=== PATIENT | female | born 1960 | race Caucasian/White ===

== ENCOUNTER 2017-03-03 15:06 | Emergency (ER) | payer OTHER ==
[~2017-03-03] VITALS: Ht 160 cm; Wt 104.6 kg
[2017-03-03] MEDS ORDERED: SODIUM CHLORIDE 0.9% 1000ML 1,000 ML IV STA (15:19)
[2017-03-03 15:20] VITALS: TEMP 36.8; Ht 160 cm; Wt 104.6 kg
[2017-03-03] MEDS ORDERED: ONDANSETRON INJ 2 MG/ML 2 ML VIAL IV STA (15:22)
[2017-03-03] MEDS ORDERED: KETOROLAC TROMETHAMINE 30 MG/ML VIAL IV STA (15:22)
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
[2017-03-03 15:25] VITALS: O2SAT 96
[2017-03-03] MEDS ORDERED: OPTIRAY 320 IV PRN (15:30)
[2017-03-03 15:42] LABS: BASO % 0.5 %; BASO ABS # 0.05 K/uL (0-0.2); COMPLETE YES; EOS % 4.4 %; HEMATOCRIT 42.1 % (37-47); IG% 0.5 %; LYMPH % 27.2 %; LYMPH ABS # 2.89 K/uL (1.2-3.4); MEAN CORPUSCULAR HEMOGLOBIN 25.8 pg (25-34); MEAN CORPUSCULAR HGB CONC 31.8 g/dl (32-36); MEAN PLATELET VOLUME 10.4 fL (7.4-10.4); MONO % 7.7 %; NEUT % 59.7 %; PLATELET COUNT 374 K/uL (130-400); WHITE BLOOD COUNT 10.63 K/uL (4.8-10.8)
[2017-03-03] MEDS ORDERED: BUPR-79 PO (16:01)
[2017-03-03] MEDS ORDERED: GLIP2.5T11 PO (16:01)
[2017-03-03] MEDS ORDERED: GLIM2TAB2 PO (16:01)
[2017-03-03] MEDS ORDERED: ZOLP5TAB PO (16:01)
[2017-03-03] MEDS ORDERED: CITA20TA9 PO (16:01)
[2017-03-03] MEDS ORDERED: METF-384 PO (16:01)
[2017-03-03] MEDS ORDERED: CETI10TA10 PO (16:01)
[2017-03-03] MEDS ORDERED: BUSP15TA70 PO (16:01)
[2017-03-03] MEDS ORDERED: ALBUAER INH (16:01)
[2017-03-03] MEDS ORDERED: PRT/20 PO (16:01)
[2017-03-03 16:03] LABS: ALT/SGPT 26 U/L (12-78); AST/SGOT 21 U/L (15-37); BLOOD UREA NITROGEN 16 mg/dl (7-18); BUN/CREATININE RATIO 17.7 (10-20); CALCIUM 8.5 mg/dl (8.5-10.1); CARBON DIOXIDE 26 mmol/L (21-32); CHLORIDE 108 mmol/L (98-107); CREATININE 0.88 mg/dl (0.60-1.20); GLUCOSE 106 mg/dl (70-99); POTASSIUM 3.7 mmol/L (3.5-5.1); SODIUM 143 mmol/L (136-145)
[2017-03-03 16:07] LABS: ALKALINE PHOSPHATASE 102 U/L (45-117); CKMB/CK RATIO 1.2 (0-3.0)
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
[2017-03-03 17:38] VITALS: BP 171/96; PULSE 84; O2SAT 99
[2017-03-03 19:07] LABS: ISTAT CREATININE 0.8 mg/dl (0.6-1.3); ISTAT HEMOGLOBIN 14.6 g/dl (12.0-16.0); ISTAT IONIZED CALCIUM 1.15 mmol/l (1.12-1.32)
== END 2017-03-03 17:41 | disposition home or self-care (01) ==
LOC: EDBD 15:06 → EDSEX 15:06 → C.EDB 15:08
DX: R07.9 Chest pain, unspecified (principal); V43.52XA Car driver injured in collision with other type car in traffic accident, initial encounter; Z79.84 Long term (current) use of oral hypoglycemic drugs; Z79.899 Other long term (current) drug therapy; Z88.0 Allergy status to penicillin; Z91.09 Other allergy status, other than to drugs and biological substances; Z83.3 Family history of diabetes mellitus; Z82.49 Family history of ischemic heart disease and other diseases of the circulatory system

== ENCOUNTER 2022-01-13 00:12 | Observation (INO) ==
[2022-01-13] MEDS ORDERED: ONDANSETRON INJ 2 MG/ML 2 ML VIAL IV STA (00:42)
[2022-01-13] MEDS ORDERED: SODIUM CHLORIDE 0.9% 500 ML IV SCH (00:45)
--- NOTE | 2022-01-13 00:46 | Emergency Department Note ---
History of Present Illness General Chief complaint: Illness Stated complaint: GENERALIZED ILLNESS/VOMITING/ Time Seen by Provider: 01/13/22 00:32 Source: patient Mode of arrival: EMS History of Present Illness Provider complaint: Flulike symptoms Onset (ago): hour(s) Location: head Pain Consistency: + constant Quality: + aching Relieved By: + none Associated symptoms: + cough, + fever/chills, + headaches, + malaise and + nausea/vomiting; no chest pain or no shortness of breath This a 62-year-old female who presents with flulike symptoms starting today. The patient states that she developed a fever of 102. She had generalized body aches and weakness. She started throwing up multiple times. She does complain of a headache. She has developed congestion and is concerned she may have CO VID-19. She had her son over for the and he called her today to let her know that one of his close contacts tested positive for COVID. The patient's son did not have any symptoms. The patient is vaccinated and received a booster for COVID-19. She has had a tooth infection for 1-1/2 weeks. She states it is much better and has been on clindamycin for this. She is scheduled to have surgery tomorrow by the recovery auditor. It is her left upper molar. She states that her the tooth is not really bothering her. She does have a chronic cough. She denies any chest pain, shortness of breath, abdominal pain, diarrhea or urinary symptoms. Home Medications Medication Instructions Recorded Confirmed Type albuterol sulfate 90 mcg/actuation 2 - 3 puff INHALATION DIRECTED 02/03/21 01/13/22 History aerosol inhaler PRN biotin 1 mg capsule 1 mg PO DAILY 02/03/21 01/13/22 History bupropion HCl 150 mg 24 hr tablet, 150 mg PO QAM 02/03/21 01/13/22 History extended release cetirizine 10 mg tablet 10 mg PO DAILY PRN 02/03/21 01/13/22 History cholecalciferol (vitamin D3) 50 50 mcg PO DAILY 02/03/21 01/13/22 History mcg (2,000 unit) capsule citalopram 10 mg tablet 10 mg PO DAILY tab 02/03/21 01/13/22 History citalopram 20 mg tablet 20 mg PO DAILY 02/03/21 01/13/22 History diphenhydramine HCl 25 mg capsule 25 mg PO Q6H PRN 02/03/21 01/13/22 History (Benadryl) fluticasone 250 mcg-salmeterol 50 1 inh INHALATION BID 02/03/21 01/13/22 History mcg/dose blistr powdr for inhalation hydrocortisone 2.5 % topical 1 applic TOPICAL BID PRN 02/03/21 01/13/22 History ointment losartan 25 mg tablet 25 mg PO DAILY 02/03/21 01/13/22 History multivitamin (Multiple Vitamins) 1 tab PO DAILY 02/03/21 01/13/22 History pantoprazole 20 mg tablet,delayed 20 mg PO DAILY 02/03/21 01/13/22 History release semaglutide 1 mg/dose (2 mg/1.5 1 mg SUBCUT WK 02/03/21 05/03/21 History mL) subcutaneous pen injector (Ozempic) triamcinolone acetonide 0.1 % 1 applic TOPICAL BID PRN 02/03/21 01/13/22 History topical cream hydrocodone 5 mg-acetaminophen 325 1 tab PO Q6H PRN #12 tab 05/03/21 01/13/22 Rx mg tablet fluticasone propionate 50 2 spray INTRANASAL DAILY 01/13/22 01/13/22 History mcg/actuation nasal spray,suspension (Flonase Allergy Relief) hydroxychloroquine 200 mg tablet 200 mg PO HS 01/13/22 01/13/22 History sodium chloride 0.65 % nasal spray 1 spray INTRANASAL BID PRN 01/13/22 01/13/22 History aerosol (Saline Mist) Allergies Allergy/AdvReac Type Severity Reaction Status Date / Time fentanyl Allergy Severe DROPPED Verified 01/13/22 02:29 B/P, O2 SATS, BECAME TACHYCARDIC Penicillins Allergy Intermediate Vomiting Verified 01/13/22 02:29 adhesive Allergy Unknown PAPER TAPE Verified 01/13/22 02:29 fire ant Allergy Unknown Unknown Verified 01/13/22 02:29 rabbit dander Allergy Unknown RABBITS Verified 01/13/22 02:29 mold AdvReac Unknown Unknown Verified 01/13/22 02:29 pollen extracts AdvReac Unknown Unknown Verified 01/13/22 02:29 Past Med/Surg History Medical History Adnexal cyst Arthritis Diabetes Diverticulitis Essential hypertension Extrinsic asthma Hypothyroidism (acquired) IBS (irritable bowel syndrome) Metabolic syndrome Non-alcoholic fatty liver disease Obesity Polycystic ovary syndrome Surgical History H/O section H/O colonoscopy H/O dilation and curettage H/O hemicolectomy H/O oral surgery History of esophagogastroduodenoscopy (EGD) History of partial colectomy sigmoid S/P THANH (total abdominal hysterectomy) Family History Denies family history of Ovarian cancer Clotting disorder Breast cancer Colorectal cancer Uterine cancer Social History Smoking Status: Never smoker Hx Alcohol Use: Yes Hx Substance Use: No Preferred Language: [place] Feels Safe at Home: Yes Review of Systems See HPI for pertinent positives & negatives. and A total of 10 systems reviewed and were otherwise negative Physical Exam Vital Signs Vital Signs - 24 hr 01/13/22 00:19 01/13/22 00:23 01/13/22 02:27 Temperature 37.0 C 37 C Temperature Source Oral Oral Pulse Rate 91 H Pulse Rate [Finger] 91 H 85 Respiratory Rate 18 18 16 Respiratory Effort / Characteristics Non-Labored Spontaneous Non-Labored Spontaneous Non-Labored Spontaneous Respiratory Depth Normal Normal Normal Blood Pressure 184/117 H Blood Pressure [Right Arm] 184/117 H 175/93 H Blood Pressure Mean 139 Blood Pressure Mean [Right Arm] 139 120 Blood Pressure Position Sitting Blood Pressure Position [Right Arm] Sitting Pulse Oximetry 96 96 95 Oxygen Delivery Method Room Air Room Air Room Air Sepsis Recent Fever Within 48 Hours No Sepsis New/Unexplained Change in Mental Status No Sepsis Action Taken by Nursing No Action Required Constitutional: Vital signs reviewed. Eyes: Pupils are equal round reactive to light. Conjunctiva are noninjected. ENT: Pharynx is clear without erythema or exudate. Mucous membranes are moist. No gingival hyperemia. No facial swelling, erythema or tenderness. No cervical lymphadenopathy. Neck supple without meningeal signs. Respiratory: Clear to auscultation bilaterally. Breath sounds are equal bilat erally. Cardiovascular: Regular rate and rhythm. No rubs or gallops. GI: Soft, nondistended and nontender. Bowel sounds are present. Musculoskeletal: No peripheral edema. No lower extremity tenderness. Integumentary: No cyanosis. or jaundice. Neurological: The patient is awake and alert. No focal deficits. Psychiatric: Normal affect. Not anxious appearing. Course Administered Medications Sodium Chloride (Nss) 500 mls @ 125 mls/hr IV .Q4H POONAM Stop: 02/12/22 00:44 Last Admin: 01/13/22 00:59 Dose: 125 mls/hr Documented by: [id number] Discontinued Medications Acetaminophen (Acetaminophen 325 Mg Tab) 650 mg PO NOW STA Stop: 01/13/22 02:06 Last Admin: 01/13/22 02:19 Dose: 650 mg Documented by: [id number] Promethazine HCl (Phenergan) 12.5 mg in 50.5 mls @ 202 mls/hr IV NOW STA Stop: 01/13/22 02:19 Last Admin: 01/13/22 02:19 Dose: 202 mls/hr Documented by: [id number] Ondansetron HCl (Ondansetron Inj 2 Mg/Ml 2 Ml Vial) 4 mg IV NOW STA Stop: 01/13/22 00:43 Last Admin: 01/13/22 00:59 Dose: 4 mg Documented by: [id number] Medical Decision Making Differential Diagnosis COVID-19, influenza, pneumonia, sepsis, bacteremia Medical Records Attestation: I reviewed the patient's medical records. I did perform a limited focused review of portions of the patient's old chart on the electronic medical record. The patient has had no recent pertinent visits to this hospital. Home Medications Current Medication List: was personally reviewed by me Laboratory Data Attestation: I reviewed the patient's lab results. Result diagrams: 01/13/22 00:25 01/13/22 00:25 Lab Results 01/13/22 01/13/22 01/13/22 Range/Units 00:25 00:25 00:25 WBC 10.31 (4.8-10.8) K/uL RBC 4.81 (4.2-5.4) M/uL Hgb 13.8 (12.0-16.0) g/dL Hct 42.3 (37-47) % MCV 87.9 (80-100) fL MCH 28.7 (25-34) pg MCHC 32.6 (32-36) g/dL RDW Std Deviation 45.8 (36.4-46.3) fL RDW Coeff of Davide 14.3 (11.5-14.5) % Plt Count 304 (130-400) K/uL MPV 12.0 H (7.4-10.4) fL Immature Gran % (Auto) 0.2 % Neut % (Auto) 78.1 % Lymph % (Auto) 10.5 % [place] % (Auto) 8.9 % Eos % (Auto) 2.0 % Baso % (Auto) 0.3 % Neut # (Auto) 8.05 H (1.4-6.5) K/uL Lymph # (Auto) 1.08 L (1.2-3.4) K/uL [place] # (Auto) 0.92 H (0.11-0.59) K/uL Eos # (Auto) 0.21 (0-0.5) K/uL Baso # (Auto) 0.03 (0-0.2) K/uL Immature Gran # (Auto) 0.02 (0.00-0.02) K/uL PT 10.2 (9.0-12.0) Seconds INR 1.0 (0.9-1.1) APTT 24.8 (21.0-31.0) Seconds PTT Ratio 0.9 Sodium 135 L (136-145) mmol/L Potassium 4.3 (3.5-5.1) mmol/L Chloride 100 (98-107) mmol/L Carbon Dioxide 26 (21-32) mmol/L Anion Gap 9 (3-11) BUN 15 (6-23) mg/dl Creatinine 0.89 (0.6-1.2) mg/dl Est Cr Clr Drug Dosing 74.9 ml/min Est GFR ( Amer) 79.9 ml/min Est GFR (Non-Af Amer) 69.0 ml/min BUN/Creatinine Ratio 16.9 (10-20) Glucose 209 H (70-99(Fasting)) mg/dl Lactate (0.4-2.0) mmol/L Calcium 9.2 (8.5-10.1) mg/dl Magnesium 1.8 (1.7-2.4) mg/dl Total Bilirubin 0.3 (0.2-1.0) mg/dl AST 18 (13-39) U/L ALT 15 (7-52) U/L Alkaline Phosphatase 113 H (34-104) U/L Total Protein 7.5 (6.0-8.3) gm/dl Albumin 3.7 (3.4-5.0) gm/dl Globulin 3.8 (2.5-4.0) gm/dl Albumin/Globulin Ratio 1.0 (0.9-2) Urine Color Urine Appearance (Clear) Urine pH (4.5-7.5) Ur Specific [place] (1.000-1.030) Urine Protein (Negative) Urine Glucose (UA) (Negative) Urine Ketones (Negative) Urine Blood (Negative) Urine Nitrite (Negative) Urine Bilirubin (Negative) Urine Urobilinogen (Negative) Ur Leukocyte Esterase (Negative) Urine WBC (Auto) (0-5) /hpf Urine RBC (Auto) (0-4) /hpf U Hyaline Cast (Auto) (0-5) /lpf U Epithel Cells (Auto) (0-5) /lpf Urine Bacteria (Auto) (Negative) SARS-CoV-2 (PCR) (Negative) Influenza Type A (PCR) (Neg) Influenza Type B (PCR) (Neg) RSV (RT-PCR) (Neg) 01/13/22 01/13/22 01/13/22 Range/Units 01:03 01:08 02:00 WBC (4.8-10.8) K/uL RBC (4.2-5.4) M/uL Hgb (12.0-16.0) g/dL Hct (37-47) % MCV (80-100) fL MCH (25-34) pg MCHC (32-36) g/dL RDW Std Deviation (36.4-46.3) fL RDW Coeff of Davide (11.5-14.5) % Plt Count (130-400) K/uL MPV (7.4-10.4) fL Immature Gran % (Auto) % Neut % (Auto) % Lymph % (Auto) % [place] % (Auto) % Eos % (Auto) % Baso % (Auto) % Neut # (Auto) (1.4-6.5) K/uL Lymph # (Auto) (1.2-3.4) K/uL [place] # (Auto) (0.11-0.59) K/uL Eos # (Auto) (0-0.5) K/uL Baso # (Auto) (0-0.2) K/uL Immature Gran # (Auto) (0.00-0.02) K/uL PT (9.0-12.0) Seconds INR (0.9-1.1) APTT (21.0-31.0) Seconds PTT Ratio Sodium (136-145) mmol/L Potassium (3.5-5.1) mmol/L Chloride (98-107) mmol/L Carbon Dioxide (21-32) mmol/L Anion Gap (3-11) BUN (6-23) mg/dl Creatinine (0.6-1.2) mg/dl Est Cr Clr Drug Dosing ml/min Est GFR ( Amer) ml/min Est GFR (Non-Af Amer) ml/min BUN/Creatinine Ratio (10-20) Glucose (70-99(Fasting)) mg/dl Lactate 0.9 (0.4-2.0) mmol/L Calcium (8.5-10.1) mg/dl Magnesium (1.7-2.4) mg/dl Total Bilirubin (0.2-1.0) mg/dl AST (13-39) U/L ALT (7-52) U/L Alkaline Phosphatase (34-104) U/L Total Protein (6.0-8.3) gm/dl Albumin (3.4-5.0) gm/dl Globulin (2.5-4.0) gm/dl Albumin/Globulin Ratio (0.9-2) Urine Color Yellow Urine Appearance Clear (Clear) Urine pH 5.5 (4.5-7.5) Ur Specific [place] 1.014 (1.000-1.030) Urine Protein Negative (Negative) Urine Glucose (UA) Negative (Negative) Urine Ketones Negative (Negative) Urine Blood 1+ H (Negative) Urine Nitrite Negative (Negative) Urine Bilirubin Negative (Negative) Urine Urobilinogen Negative (Negative) Ur Leukocyte Esterase Negative (Negative) Urine WBC (Auto) 1-5 (0-5) /hpf Urine RBC (Auto) 0-4 (0-4) /hpf U Hyaline Cast (Auto) 1-5 (0-5) /lpf U Epithel Cells (Auto) >30 H (0-5) /lpf Urine Bacteria (Auto) Negative (Negative) SARS-CoV-2 (PCR) NEGATIVE (Negative) Influenza Type A (PCR) Negative (Neg) Influenza Type B (PCR) Negative (Neg) RSV (RT-PCR) Negative (Neg) Imaging Data Attestation: I personally reviewed and interpreted this imaging study as fo llows: My Impression: Chest x-ray per my interpretation shows no acute cardiopulmonary process. ECG Data Attestation: I personally reviewed and interpreted this ECG as follows: Indication: + vomiting Rate (beats per minute): 85 Rhythm: + normal sinus ECG [place]: + Normal ECG ST segments: no ST elevation ECG Findings: no PVCs MDM Narrative I did evaluate the patient as noted above. Patient is presenting with vomiting, fever and congestion today. IV access was established. I did treat the patient with Zofran and normal saline IV. I did place an order for continuous cardiac monitoring. The monitor showed normal sinus rhythm at a rate of 90 bpm. I did order and personally review the patient's 12-lead EKG as described above. She has no acute ischemic changes. I did order and personally reviewed the images of the patient's chest x-ray as described above. There is no evidence of pneumonia. I did order a urine analysis. She does not appear to have a UTI. I did order and review the patient's blood work as noted in the electronic medical record. CBC shows a white count of 10.3. She does have a left shift on differential. Hemoglobin is 13.8 and platelet count is 304. Coags are unremarkable. Electrolytes are unremarkable other than sodium 135. Lactate is 0.9. LFTs are within normal limits other than the alk phos which is 113. Testing for COVID-19, influenza and RSV are negative. I did reassess the patient. She still states that she feels nauseated and she gets a headache and lightheaded when she stands up. She was given Tylenol for headache and Phenergan IV. She will be hospitalized for further care and evaluation. I did discuss the case with the hospitalist and case folder. Impression & Plan Acute febrile illness, Intractable vomiting, Postural lightheadedness, Headache Discharge Plan Visit Data Chief Complaint: Illness Stated Complaint: GENERALIZED ILLNESS/VOMITING/ ED Provider: Horace Soni Discharge Problem: Acute febrile illness, Intractable vomiting, Postural lightheadedness, Headache Patient Disposition: Being Evaluated by Hospitalist Forms Stand Alone Forms: My [facility] Prescriptions Prescriptions: No Action albuterol sulfate 90 mcg/actuation HFA aerosol inhaler 2 puff inhalation DIRECTED PRN (Reason: Shortness Of Breath) RF: 0 losartan 25 mg tablet 25 mg PO DAILY RF: 0 hydrocortisone 2.5 % ointment 1 applic topical BID PRN (Reason: Skin Irritation) RF: 0 triamcinolone acetonide 0.1 % cream 1 applic topical BID PRN (Reason: Skin Irritation) RF: 0 citalopram 10 mg tablet 10 mg PO DAILY RF: 0 Ozempic 1 mg/dose (2 mg/1.5 mL) pen injector 1 mg subcut WK RF: 0 pantoprazole 20 mg tablet,delayed release (DR/EC) 20 mg PO DAILY RF: 0 citalopram 20 mg tablet 20 mg PO DAILY RF: 0 fluticasone propion-salmeterol 250-50 mcg/dose blister with device 1 inh inhalation BID RF: 0 bupropion HCl 150 mg tablet extended release 24 hr 150 mg PO QAM RF: 0 biotin 1 mg capsule 1 mg PO DAILY RF: 0 multivitamin [Multiple Vitamins] Tablet 1 tab PO DAILY RF: 0 diphenhydramine HCl [Benadryl] 25 mg capsule 25 mg PO Q6H PRN (Reason: Itching) RF: 0 cetirizine 10 mg tablet 10 mg PO DAILY PRN (Reason: Congestion) RF: 0 cholecalciferol (vitamin D3) 50 mcg (2,000 unit) capsule 50 mcg PO DAILY RF: 0 hydrocodone-acetaminophen 5-325 mg tablet 1 tab PO Q6H PRN (Reason: pain) Qty: 12 RF: 0 ondansetron 4 mg tablet,disintegrating 4 mg PO Q6H PRN (Reason: nausea and vomiting) Qty: 12 RF: 0 Referrals Referrals: Karlo Fernandes MD [Primary Care Provider] -
[2022-01-13 00:53] LABS: Basophils # (auto) 0.03 K/uL (0-0.2); Basophils % (auto) 0.3 %; Eosinophils # (auto) 0.21 K/uL (0-0.5); Hematocrit (blood only) 42.3 % (37-47); Hemoglobin 13.8 g/dL (12.0-16.0); Immature Granulocytes # (auto) 0.02 K/uL (0.00-0.02); Immature Granulocytes % (auto) 0.2 %; Lymphocytes # (auto) 1.08 K/uL (1.2-3.4); Lymphocytes % (auto) 10.5 %; Mean Corpuscular Hemoglobin 28.7 pg (25-34); Mean Corpuscular Hgb Conc 32.6 g/dL (32-36); Mean Corpuscular Volume 87.9 fL (80-100); Monocytes # (auto) 0.92 K/uL (0.11-0.59); Monocytes % (auto) 8.9 %; Neutrophils # (auto) 8.05 K/uL (1.4-6.5); Neutrophils % (auto) 78.1 %; Platelet Count 304 K/uL (130-400); RDW Coefficient of Variation 14.3 % (11.5-14.5); RDW Standard Deviation 45.8 fL (36.4-46.3); Red Blood Count 4.81 M/uL (4.2-5.4); White Blood Count 10.31 K/uL (4.8-10.8)
[2022-01-13 01:05] LABS: Partial Thromboplastin Ratio 0.9; Partial Thromboplastin Time 24.8 Seconds (21.0-31.0); Prothrombin Time 10.2 Seconds (9.0-12.0)
[2022-01-13 01:31] LABS: Albumin Level 3.7 gm/dl (3.4-5.0); BUN Creatinine Ratio 16.9 (10-20); Bilirubin,Total 0.3 mg/dl (0.2-1.0); Calcium 9.2 mg/dl (8.5-10.1); Creatinine Clr Calc Pharmacy 74.9 ml/min; Est GFR (African American) 79.9 ml/min; Globulin 3.8 gm/dl (2.5-4.0); Magnesium 1.8 mg/dl (1.7-2.4); Total Protein 7.5 gm/dl (6.0-8.3)
[2022-01-13 01:46] LABS: Influenza A virus by PCR Negative (Neg); Influenza B virus by PCR Negative (Neg); RSV by PCR Negative (Neg); SARS CoV2 RNA(COVID-19) InHosp NEGATIVE (Negative)
[2022-01-13 01:51] LABS: Potassium 4.3 mmol/L (3.5-5.1)
[2022-01-13] MEDS ORDERED: ACETAMINOPHEN 325 MG TAB PO STA (02:05)
[2022-01-13] MEDS ORDERED: PROMETHAZINE 12.5 MG/50.5 ML BAG IV STA (02:05)
[2022-01-13 02:24] LABS: Appearance Urine Clear (Clear); Bacteria Urine Automated Negative (Negative); Bilirubin Urine Negative (Negative); Blood Urine 1+ (Negative); Color Urine Yellow; Epithelial Cell Urine Auto >30 /lpf (0-5); Glucose Urine UA Negative (Negative); Ketones Urine Negative (Negative); Leukocyte Esterase Urine Negative (Negative); Nitrite Urine Negative (Negative); Protein Urine Negative (Negative); RBC Urine Automated 0-4 /hpf (0-4); Specific Gravity Urine 1.014 (1.000-1.030); Urobilinogen Urine Negative (Negative); pH Urine 5.5 (4.5-7.5)
[2022-01-13] MEDS ORDERED: LOSARTAN POTASSIUM 25 MG TAB PO STA (02:40)
[2022-01-13] MEDS ORDERED: oxyCODONE HCL IR 5 MG TAB (IMMEDIATE RELEASE) PO STA (03:02)
[2022-01-13] MEDS ORDERED: SODIUM CHLORIDE 0.9% 500 ML IV ONE (03:44)
--- NOTE | 2022-01-13 04:01 | History & Physical Report ---
Date of Service January 13, 2022 Assessment & Plan (1) Headache: Plan: Multifactorial : Uncontrolled hypertension secondary to viral illness Acute vertigo attack GERD, stable on regimen DM2 on Ozempic, suboptimal control as of recent hemoglobin A1c of 8.28 November 2021 anxiety/mood disorder, patient anxious on exam. Sicca syndrome on Plaquenil Dental abscess improved on current outpatient clindamycin course. Medical telemetry Continue home losartan, titrate as needed Meclizine as needed vertigo attack Basal insulin adjusted for clear liquid diet for now, ISS BG goal 1 10-1 40, carb count coverage DVT prophylaxis per Lovenox subcu Full code Text document was generated using [employer] voice recognition software. It may contain grammatical or spelling errors. Kindly contact undersigned for clarification of any documentation item in question. History of Present Illness Chief Complaint: Headache, dizziness, vomiting Primary Care Provider: Karlo Fernandes MD History obtained from patient and records. Medical history significant for hypertension, NAFLD, GERD, DM2 on Ozempic, anxiety/mood disorder, chronic hyponatremia, sicca syndrome on Plaquenil. Patient started by dentist on clindamycin course for dental abscess about 5 days ago. Dental surgery contemplated today. Patient felt sick after her birthday lunch yesterday. Generalized body aches and weakness. Fever 102. Achy headache associated with dizziness described as spinning and similar to previous vertigo episodes. Patient had vomiting episodes. Patient denies chest pain, SOB, abdominal pain, diarrhea. Patient brought to the ER by EMS. Initial SBP 180s. 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 Allergies Allergy/AdvReac Type Severity Reaction Status Date / Time fentanyl Allergy Severe DROPPED Verified 01/13/22 02:29 B/P, O2 SATS, BECAME TACHYCARDIC Penicillins Allergy Intermediate Vomiting Verified 01/13/22 02:29 adhesive Allergy Unknown PAPER TAPE Verified 01/13/22 02:29 fire ant Allergy Unknown Unknown Verified 01/13/22 02:29 rabbit dander Allergy Unknown RABBITS Verified 01/13/22 02:29 mold AdvReac Unknown Unknown Verified 01/13/22 02:29 pollen extracts AdvReac Unknown Unknown Verified 01/13/22 02:29 Home Medications Medication Instructions Recorded Confirmed Type albuterol sulfate 90 mcg/actuation 2 - 3 puff INHALATION DIRECTED 02/03/21 01/13/22 History aerosol inhaler PRN biotin 1 mg capsule 1 mg PO DAILY 02/03/21 01/13/22 History bupropion HCl 150 mg 24 hr tablet, 150 mg PO QAM 02/03/21 01/13/22 History extended release cetirizine 10 mg tablet 10 mg PO DAILY PRN 02/03/21 01/13/22 History cholecalciferol (vitamin D3) 50 50 mcg PO DAILY 02/03/21 01/13/22 History mcg (2,000 unit) capsule citalopram 10 mg tablet 10 mg PO DAILY tab 02/03/21 01/13/22 History citalopram 20 mg tablet 20 mg PO DAILY 02/03/21 01/13/22 History diphenhydramine HCl 25 mg capsule 25 mg PO Q6H PRN 02/03/21 01/13/22 History (Benadryl) fluticasone 250 mcg-salmeterol 50 1 inh INHALATION BID 02/03/21 01/13/22 History mcg/dose blistr powdr for inhalation hydrocortisone 2.5 % topical 1 applic TOPICAL BID PRN 02/03/21 01/13/22 History ointment losartan 25 mg tablet 25 mg PO DAILY 02/03/21 01/13/22 History multivitamin (Multiple Vitamins) 1 tab PO DAILY 02/03/21 01/13/22 History pantoprazole 20 mg tablet,delayed 20 mg PO DAILY 02/03/21 01/13/22 History release semaglutide 1 mg/dose (2 mg/1.5 1 mg SUBCUT WK 02/03/21 01/13/22 History mL) subcutaneous pen injector (Ozempic) triamcinolone acetonide 0.1 % 1 applic TOPICAL BID PRN 02/03/21 01/13/22 History topical cream hydrocodone 5 mg-acetaminophen 325 1 tab PO Q6H PRN #12 tab 05/03/21 01/13/22 Rx mg tablet clindamycin HCl 150 mg capsule 150 mg PO Q6 01/13/22 01/13/22 History fluticasone propionate 50 2 spray INTRANASAL DAILY 01/13/22 01/13/22 History mcg/actuation nasal spray,suspension (Flonase Allergy Relief) hydroxychloroquine 200 mg tablet 200 mg PO HS 01/13/22 01/13/22 History sodium chloride 0.65 % nasal spray 1 spray INTRANASAL BID PRN 01/13/22 01/13/22 History aerosol (Saline Mist) Past Med/Surg History Medical History Adnexal cyst Arthritis Diabetes Diverticulitis Essential hypertension Extrinsic asthma Hypothyroidism (acquired) IBS (irritable bowel syndrome) Metabolic syndrome Non-alcoholic fatty liver disease Obesity Polycystic ovary syndrome Surgical History H/O section H/O colonoscopy H/O dilation and curettage H/O hemicolectomy H/O oral surgery History of esophagogastroduodenoscopy (EGD) History of partial colectomy sigmoid S/P THANH (total abdominal hysterectomy) Family History Denies family history of Ovarian cancer Clotting disorder Breast cancer Colorectal cancer Uterine cancer Social History Smoking Status: Never smoker Hx Alcohol Use: No Hx Substance Use: No Preferred Language: Japanese Communication Ability: Effective 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 Beliefs That Will Affect Care: None Current Living Situation: Alone Other Information That Helps Us Care for You: No Feels Safe at Home: Yes Safety Concerns: Feels Safe At This Time Assistive Devices: None Review of Systems Review of Systems: As per HPI, all other systems reviewed and negative Physical Exam Physical Exam: GENERAL: Comfortable, slightly anxious, obese, pleasant, no respiratory distress SKIN: Normal color, warm HEENT: [place] palpebral conjunctivae, no ptosis, dry buccal mucosa NECK : Supple, short neck, no tenderness CHEST : CTA, no tenderness HEART : RRR, no obvious murmurs ABDOMEN: Some distention, nontender EXTREMITIES : No LE swelling/tenderness, no other conspicuous deformities noted NEUROLOGIC : Coherent, no facial asymmetry, no other gross focality Results & Data Results & Data ([facility]) Vital Signs (Past 12 Hours) Vital Signs Temp Pulse Pulse Resp BP BP Pulse Ox 01/13/22 03:30 18 100 01/13/22 03:00 36.8 C 78 18 164/89 H 98 01/13/22 02:27 85 16 175/93 H 95 01/13/22 00:23 37 C 91 H 18 184/117 H 96 01/13/22 00:19 37.0 C 91 H 18 184/117 H 96 Laboratory Results Laboratory Results WBC 10.31 K/uL (4.8-10.8) 01/13/22 00:25 RBC 4.81 M/uL (4.2-5.4) 01/13/22 00:25 Hgb 13.8 g/dL (12.0-16.0) 01/13/22 00:25 Hct 42.3 % (37-47) 01/13/22 00:25 MCV 87.9 fL (80-100) 01/13/22 00:25 MCH 28.7 pg (25-34) 01/13/22 00:25 MCHC 32.6 g/dL (32-36) 01/13/22 00:25 RDW Std Deviation 45.8 fL (36.4-46.3) 01/13/22 00:25 RDW Coeff of [place] 14.3 % (11.5-14.5) 01/13/22 00:25 Plt Count 304 K/uL (130-400) 01/13/22 00:25 MPV 12.0 fL (7.4-10.4) H 01/13/22 00:25 Immature Gran % (Auto) 0.2 % 01/13/22 00:25 Neut % (Auto) 78.1 % 01/13/22 00:25 Lymph % (Auto) 10.5 % 01/13/22 00:25 [place] % (Auto) 8.9 % 01/13/22 00:25 Eos % (Auto) 2.0 % 01/13/22 00:25 Baso % (Auto) 0.3 % 01/13/22 00:25 Neut # (Auto) 8.05 K/uL (1.4-6.5) H 01/13/22 00:25 Lymph # (Auto) 1.08 K/uL (1.2-3.4) L 01/13/22 00:25 [place] # (Auto) 0.92 K/uL (0.11-0.59) H 01/13/22 00:25 Eos # (Auto) 0.21 K/uL (0-0.5) 01/13/22 00:25 Baso # (Auto) 0.03 K/uL (0-0.2) 01/13/22 00:25 Immature Gran # (Auto) 0.02 K/uL (0.00-0.02) 01/13/22 00:25 PT 10.2 Seconds (9.0-12.0) 01/13/22 00:25 INR 1.0 (0.9-1.1) 01/13/22 00:25 APTT 24.8 Seconds (21.0-31.0) 01/13/22 00:25 PTT Ratio 0.9 01/13/22 00:25 Sodium 135 mmol/L (136-145) L 01/13/22 00:25 Potassium 4.3 mmol/L (3.5-5.1) 01/13/22 00:25 Chloride 100 mmol/L (98-107) 01/13/22 00:25 Carbon Dioxide 26 mmol/L (21-32) 01/13/22 00:25 Anion Gap 9 (3-11) 01/13/22 00:25 BUN 15 mg/dl (6-23) 01/13/22 00:25 Creatinine 0.89 mg/dl (0.6-1.2) 01/13/22 00:25 Est Cr Clr Drug Dosing 74.9 ml/min 01/13/22 00:25 Est GFR ( Amer) 79.9 ml/min 01/13/22 00:25 Est GFR (Non-Af Amer) 69.0 ml/min 01/13/22 00:25 BUN/Creatinine Ratio 16.9 (10-20) 01/13/22 00:25 Glucose 209 mg/dl (70-99(Fasting)) H 01/13/22 00:25 Lactate 0.9 mmol/L (0.4-2.0) 01/13/22 01:08 Calcium 9.2 mg/dl (8.5-10.1) 01/13/22 00:25 Magnesium 1.8 mg/dl (1.7-2.4) 01/13/22 00:25 Total Bilirubin 0.3 mg/dl (0.2-1.0) 01/13/22 00:25 AST 18 U/L (13-39) 01/13/22 00:25 ALT 15 U/L (7-52) 01/13/22 00:25 Alkaline Phosphatase 113 U/L (34-104) H 01/13/22 00:25 Troponin I High Sens 4.9 pg/ml (0-14) 01/13/22 00:25 B-Natriuretic Peptide 96 pg/ml (0-100) 01/13/22 02:50 Total Protein 7.5 gm/dl (6.0-8.3) 01/13/22 00:25 Albumin 3.7 gm/dl (3.4-5.0) 01/13/22 00:25 Globulin 3.8 gm/dl (2.5-4.0) 01/13/22 00:25 Albumin/Globulin Ratio 1.0 (0.9-2) 01/13/22 00:25 TSH 1.580 uIu/ml (0.300-4.500) 01/13/22 00:25 Urine Color Yellow 01/13/22 02:00 Urine Appearance Clear (Clear) 01/13/22 02:00 Urine pH 5.5 (4.5-7.5) 01/13/22 02:00 Ur Specific [place] 1.014 (1.000-1.030) 01/13/22 02:00 Urine Protein Negative (Negative) 01/13/22 02:00 Urine Glucose (UA) Negative (Negative) 01/13/22 02:00 Urine Ketones Negative (Negative) 01/13/22 02:00 Urine Blood 1+ (Negative) H 01/13/22 02:00 Urine Nitrite Negative (Negative) 01/13/22 02:00 Urine Bilirubin Negative (Negative) 01/13/22 02:00 Urine Urobilinogen Negative (Negative) 01/13/22 02:00 Ur Leukocyte Esterase Negative (Negative) 01/13/22 02:00 Urine WBC (Auto) 1-5 /hpf (0-5) 01/13/22 02:00 Urine RBC (Auto) 0-4 /hpf (0-4) 01/13/22 02:00 U Hyaline Cast (Auto) 1-5 /lpf (0-5) 01/13/22 02:00 U Epithel Cells (Auto) >30 /lpf (0-5) H 01/13/22 02:00 Urine Bacteria (Auto) Negative (Negative) 01/13/22 02:00 SARS-CoV-2 (PCR) NEGATIVE (Negative) 01/13/22 01:03 Influenza Type A (PCR) Negative (Neg) 01/13/22 01:03 Influenza Type B (PCR) Negative (Neg) 01/13/22 01:03 RSV (RT-PCR) Negative (Neg) 01/13/22 01:[address] head initial read: No acute intracranial abnormality. Senescent changes. If there is further concern, consider MRI Chest x-ray as per my interpretation elevated right hemidiaphragm no infiltrate EKG as per my interpretation : Rate 85, NSR, normal axis, no ischemia (1) Headache Headache chronicity pattern: acute headache Headache type: unspecified
[2022-01-13] MEDS ORDERED: INSULIN GLARGINE SOLOSTAR 100 UNITS/ML 3 ML PEN SC STA (04:40)
[2022-01-13] MEDS ORDERED: LORazepam 2 MG/1 ML VIAL IV PRN (06:28)
[2022-01-13] MEDS ORDERED: MECLIZINE 12.5 MG TAB PO PRN (06:28)
[2022-01-13] MEDS ORDERED: DEXTROSE 50% 50 ML SYRINGE IV PRN (06:28)
[2022-01-13] MEDS ORDERED: GLUCOSE 10 TABS/TUBE PO PRN (06:28)
[2022-01-13] MEDS ORDERED: HYDROCODONE/ACETAMOPHEN 5/325MG TAB PO PRN (06:28)
[2022-01-13] MEDS ORDERED: CARBOHYDRATES FOR HYPOGLYCEMIA PO PRN (06:28)
[2022-01-13] MEDS ORDERED: CETIRIZINE HCL 10 MG TABLET PO PRN (06:28)
[2022-01-13] MEDS ORDERED: PROMETHAZINE HCL 12.5 MG in SODIUM CHLORIDE 0.9% 50 ML IV PRN (06:28)
[2022-01-13] MEDS ORDERED: GLUCOSE 40% GEL 15 GM TUBE PO PRN (06:28)
[2022-01-13] MEDS ORDERED: GLUCAGON FOR INJ 1 MG VIAL SQ PRN (06:28)
--- NOTE | 2022-01-13 07:11 | CT Scan Report ---
CT SCAN OF THE BRAIN WITHOUT IV CONTRAST CLINICAL HISTORY: Headache. COMPARISON STUDY: No priors. TECHNIQUE: Unenhanced axial CT scan of the brain is performed from the vertex to the skull base. A do se lowering technique was utilized adhering to the principles of ALARA. CT DOSE: 614.27 mGy.cm FINDINGS: Brain parenchyma: There are age-related involutional changes noting moderate subcortical and periven tricular microangiopathic change. There is no hemorrhage, mass effect, or evidence of acute territori al ischemia by CT criteria. Tovar-white matter differentiation is preserved. No extra-axial fluid elliott ection is seen. Ventricles, sulci, cisterns: Prominent secondary to involutional change. Intracranial vasculature: There is atherosclerotic calcification of the cavernous carotid arteries. Calvarium: Unremarkable. Sinuses and mastoids: There is trace fluid in the right sphenoid sinus. The remaining paranasal sinus es are clear. The mastoid air cells are well pneumatized. Orbits: The bony orbits are grossly intact. IMPRESSION: There is no hemorrhage, mass effect, or evidence of acute territorial ischemia by CT balta watson. ACT 112: Negative or not required by law. Electronically signed by: Chip Roberts M.D. 01/13/2022 7:10 AM
--- NOTE | 2022-01-13 07:11 | XRay Report ---
XR chest 1V portable HISTORY: 62 years-old Female SEPSIS acute sepsis COMPARISON: Chest radiograph 05/03/2021 TECHNIQUE: Portable AP view of the chest FINDINGS: The cardiomediastinal and hilar silhouettes are within normal limits. Unchanged mild right hemidiaphr agmatic elevation. No pneumothorax, pleural effusion, airspace consolidation or overt pulmonary edema . Degenerative changes of the shoulders and spine. IMPRESSION: No acute process. ACT 112: Negative or not required by law. The above report was generated using voice recognition software. It may contain grammatical, syntax o r spelling errors. Electronically signed by: Naseem Bryant M.D. 01/13/2022 7:09 AM
[2022-01-13] MEDS: ACETAMINOPHEN 325 MG TAB PO PRN ×2 (08:01→13:24)
[2022-01-13] MEDS: CLINDAMYCIN HCL 150 MG CAP PO SCH ×2 (08:01→13:23)
[2022-01-13] MEDS: INSULIN ASPART PER UNIT SC SCH ×2 (08:24→13:24)
[2022-01-13] MEDS: ENOXAPARIN INJ 40 MG/0.4 ML SYR SQ SCH ×2 (08:27→08:49)
[2022-01-13] MEDS ORDERED: CITALOPRAM 20 MG TAB PO SCH ×2 (09:00)
[2022-01-13] MEDS ORDERED: FLUTICASONE/SALMETEROL 250/50 (ADVAIR) 14 PUFF/1 INHALER INH SCH (09:00)
[2022-01-13] MEDS ORDERED: FLUTICASONE/VILANTEROL 100/25MCG 14 PUFFS/INHALER INH SCH (09:00)
[2022-01-13] MEDS ORDERED: PANTOprazole 40 MG TAB PO SCH (09:00)
[2022-01-13] MEDS ORDERED: MULTIVITAMIN TAB PO SCH (09:00)
[2022-01-13] MEDS ORDERED: buPROPion XL 150 MG TABCR PO SCH (09:00)
[2022-01-13] MEDS ORDERED: FLUTICASONE PROPIONATE NA SPR 16 GM BTL SCH (09:00)
--- NOTE | 2022-01-13 12:12 | Electrocardiogram Report ---
Test Reason : Blood Pressure : / mmHG Vent. Rate : 085 BPM Atrial Rate : 085 BPM P-R Int : 144 ms QRS Dur : 074 ms QT Int : 366 ms P-R-T Axes : 045 004 032 degrees QTc Int : 435 ms Poor data quality, interpretation may be adversely affected Normal sinus rhythm Cannot rule out Inferior infarct , age undetermined Abnormal ECG When compared with ECG of 03-MAY-2021 01:36, No significant change was found Confirmed by William Jacobsen ([id number]) on 01/13/2022 12:12:10 PM Referred By: REFERRED SELF Confirmed By:López Jacobsen
--- NOTE | 2022-01-13 13:17 | Hospitalist Progress Note ---
Date of Service January 13, 2022 Assessment & Plan (1) Headache: Plan: Multifactorial : Uncontrolled hypertension, Vertigo Resolved Hypertensive emergency Missed her losartan secondary to nausea, vomiting Increase losartan to 50 mg daily Advised to monitor her blood pressure regularly at home Advised to follow-up with PCP for further recommendations Low-salt diet, regular exercise advised Vertigo CT head showed no acute process Symptomatically improved Meclizine as needed Advised to follow-up with ENT as outpatient GERD on PPI DM II on Ozempic hemoglobin A1c of 8.28 November 2021 Continue Insulin while hospitalized Anxiety/mood disorder Continue home meds Sicca syndrome on Plaquenil Dental abscess On clindamycin course. Consider follow-up with dental surgery upon discharge Morbid Obesity BMI:39.9 DVT Px: Lovenox SQ Code Status Full code Admission and Anticipated Discharge Date Admission Date: January 13, 2022 Subjective Patient is seen and examined at bedside States feeling much better today Eager to get discharged Nausea, vomiting, headache resolved Blood pressure is better today Denies any chest pain, shortness of breath, dizziness, abdominal pain Review of Systems Review of Systems: All systems reviewed & are unremarkable except as noted in Subjective Physical Exam Physical Exam: Physical Exam: Vitals signs as noted above General Appearance:Obese, no apparent distress Head: normocephalic, Atraumatic Eyes: normal inspection, EOMI Neck: supple, Trachea midline Respiratory/Chest: Normal breath sounds, CTA Cardiovascular: S1, S2, No murmur Abdomen/GI:Soft, Non tender, Bowel sounds present Extremities/Musculoskeletal:normal inspection, no edema Neurologic/Psych:AAOX3, grossly no focal neurological deficits Skin: normal color, warm Results & Data Results & Data ([facility]) Vital Signs (Past 12 Hours) Vital Signs Temp Pulse Pulse Resp BP Pulse Ox 01/13/22 12:21 36.5 C 69 20 138/75 98 01/13/22 10:00 76 01/13/22 08:01 36.8 C 68 18 130/79 96 01/13/22 06:44 73 01/13/22 06:30 36.8 C 78 18 148/77 H 95 01/13/22 05:00 37.2 C 85 18 176/104 H 98 01/13/22 03:30 18 100 01/13/22 03:00 36.8 C 78 18 164/89 H 98 01/13/22 02:27 85 16 175/93 H 95 Laboratory Results Short CBC 01/13/22 Range/Units 00:25 WBC 10.31 (4.8-10.8) K/uL Hgb 13.8 (12.0-16.0) g/dL Hct 42.3 (37-47) % Plt Count 304 (130-400) K/uL BMP 01/13/22 00:25 Sodium 135 L Potassium 4.3 Chloride 100 Carbon Dioxide 26 BUN 15 Creatinine 0.89 Glucose 209 H Calcium 9.2 Liver Function 01/13/22 Range/Units 00:25 Total Bilirubin 0.3 (0.2-1.0) mg/dl AST 18 (13-39) U/L ALT 15 (7-52) U/L Alkaline Phosphatase 113 H (34-104) U/L Albumin 3.7 (3.4-5.0) gm/dl Urine 01/13/22 Range/Units 02:00 Urine Color Yellow Urine Appearance Clear (Clear) Urine pH 5.5 (4.5-7.5) Ur Specific [place] 1.014 (1.000-1.030) Urine Protein Negative (Negative) Urine Glucose (UA) Negative (Negative) (1) Headache Headache chronicity pattern: acute headache Headache type: unspecified
--- NOTE | 2022-01-13 15:03 | Discharge Summary ---
Date of Service January 13, 2022 Admission HPI Per Admitting Provider History obtained from patient and records. Medical history significant for hypertension, NAFLD, GERD, DM2 on Ozempic, anxiety/mood disorder, chronic hyponatremia, sicca syndrome on Plaquenil. Patient started by dentist on clindamycin course for dental abscess about 5 days ago. Dental surgery contemplated today. Patient felt sick after her birthday lunch yesterday. Generalized body aches and weakness. Fever 102. Achy headache associated with dizziness described as spinning and similar to previous vertigo episodes. Patient had vomiting episodes. Patient denies chest pain, SOB, abdominal pain, diarrhea. Patient brought to the ER by EMS. Initial SBP 180s. 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 Admission Exam Per Admitting Provider Physical Exam Physical Exam: GENERAL: Comfortable, slightly anxious, obese, pleasant, no respiratory distress SKIN: Normal color, warm HEENT: [place] palpebral conjunctivae, no ptosis, dry buccal mucosa NECK : Supple, short neck, no tenderness CHEST : CTA, no tenderness HEART : RRR, no obvious murmurs ABDOMEN: Some distention, nontender EXTREMITIES : No LE swelling/tenderness, no other conspicuous deformities noted NEUROLOGIC : Coherent, no facial asymmetry, no other gross focality Principal Diagnosis Hypertensive Urgency Vertigo Discharge Data Allergies Allergy/AdvReac Type Severity Reaction Status Date / Time fentanyl Allergy Severe DROPPED Verified 01/13/22 02:29 B/P, O2 SATS, BECAME TACHYCARDIC Penicillins Allergy Intermediate Vomiting Verified 01/13/22 02:29 adhesive Allergy Unknown PAPER TAPE Verified 01/13/22 02:29 fire ant Allergy Unknown Unknown Verified 01/13/22 02:29 rabbit dander Allergy Unknown RABBITS Verified 01/13/22 02:29 mold AdvReac Unknown Unknown Verified 01/13/22 02:29 pollen extracts AdvReac Unknown Unknown Verified 01/13/22 02:29 Consultations 01/13/22 02:05 ED Decision to Admit Stat Ordered Studies 01/13/22 03:02 CT head/brain wo con Urgent Hospital Course (1) Headache: Multifactorial : Uncontrolled hypertension, Vertigo Resolved Hypertensive emergency Missed her losartan secondary to nausea, vomiting Increase losartan to 50 mg daily Advised to monitor her blood pressure regularly at home Advised to follow-up with PCP for further recommendations Low-salt diet, regular exercise advised Vertigo CT head showed no acute process Symptomatically improved Meclizine as needed Advised to follow-up with ENT as outpatient GERD on PPI DM II on Ozempic hemoglobin A1c of 8.28 November 2021 Continue Insulin while hospitalized Anxiety/mood disorder Continue home meds Sicca syndrome on Plaquenil Dental abscess On clindamycin course. Consider follow-up with dental surgery upon discharge Morbid Obesity BMI:39.9 DVT Px: Lovenox SQ Code Status Full code Total Time Total Time Spent Total Time Spent (In Minutes): 40 minutes Discharge Plan Discharge Items Patient Disposition: Home - Self-Care Reason For Visit: NELSON, HTN Discharge Diagnosis: Hypertensive Urgency Vertigo Activity: Resume your previous activity Exercise/Sports: Gradually increase as tolerated Non-emergency contact: Primary Care Provider and Specialist Call non-emergency contact if: you have any medication questions, your symptoms worsen, your pain is concerning for you and you have a fever Follow-up/Referrals: Karlo Fernandes MD [Primary Care Provider] - (Date & Time 01/17/2022 10:20 AM Provider Carmela Greene MD Department General Internal Medicine [facility] ) Diet: Carb Consistent or DM2 and Heart Healthy Addtl Attending Provider Instructions: Follow up with your physician on 01/17/2022 10:20 AM Follow up with your ENT physician for further evaluation of Dizziness. --- Your blood pressure regularly as advised and discussed with your physician for further adjustment of her blood pressure medications. --Your losartan is increased to 50 mg daily for better control of blood pressure. Seek immediate medical attention if your symptoms reoccur or worsen Please take all medications as instructed on discharge list below. Please call if you have any questions or problems. You can reach a [facility] hospitalist on duty at [facility] 24 hours a day by calling [phone] Pending Studies at Discharge: No Stand-Alone Forms: My [facility] [place], Smoking Cessation Medications and DC Order Prescriptions: New meclizine 12.5 mg Tablet 12.5 mg PO Q8H PRN (Reason: dizziness) Qty: 30 RF: 0 losartan 50 mg tablet 50 mg PO DAILY Qty: 30 RF: 0 Continued albuterol sulfate 90 mcg/actuation HFA aerosol inhaler 2 - 3 puff inhalation DIRECTED PRN (Reason: Shortness Of Breath) RF: 0 hydrocortisone 2.5 % ointment 1 applic topical BID PRN (Reason: Skin Irritation) RF: 0 triamcinolone acetonide 0.1 % cream 1 applic topical BID PRN (Reason: Skin Irritation) RF: 0 citalopram 10 mg tablet 10 mg PO DAILY RF: 0 Ozempic 1 mg/dose (2 mg/1.5 mL) pen injector 1 mg subcut WK RF: 0 pantoprazole 20 mg tablet,delayed release (DR/EC) 20 mg PO DAILY RF: 0 citalopram 20 mg tablet 20 mg PO DAILY RF: 0 fluticasone propion-salmeterol 250-50 mcg/dose blister with device 1 inh inhalation BID RF: 0 bupropion HCl 150 mg tablet extended release 24 hr 150 mg PO QAM RF: 0 biotin 1 mg capsule 1 mg PO DAILY RF: 0 multivitamin [Multiple Vitamins] Tablet 1 tab PO DAILY RF: 0 diphenhydramine HCl [Benadryl] 25 mg capsule 25 mg PO Q6H PRN (Reason: Itching) RF: 0 cetirizine 10 mg tablet 10 mg PO DAILY PRN (Reason: Congestion) RF: 0 cholecalciferol (vitamin D3) 50 mcg (2,000 unit) capsule 50 mcg PO DAILY RF: 0 hydrocodone-acetaminophen 5-325 mg tablet 1 tab PO Q6H PRN (Reason: pain) Qty: 12 RF: 0 hydroxychloroquine 200 mg tablet 200 mg PO HS RF: 0 fluticasone propionate [Flonase Allergy Relief] 50 mcg/actuation [place],Suspension 2 spray INTRANASAL DAILY RF: 0 Saline Mist 0.65 % Aerosol,[place] 1 spray INTRANASAL BID PRN (Reason: Congestion) RF: 0 clindamycin HCl 150 mg capsule 150 mg PO Q6 RF: 0 Discontinued losartan 25 mg tablet 25 mg PO DAILY RF: 0 Discharge Orders: Discharge Order (Routine); Ordered 01/13/22 Ordered By: Bobby Hubbard/Other Patient Handouts: Losartan Oral Tablet 50 mg, Meclizine Oral Tablet 12.5 mg Admission Data Admit Date/Time: 01/13/22 04:37 Attending Provider: Bobby Dean Admit Provider: Darell Waddell Primary Care Provider: Karlo Fernandes Other Providers: Darell Waddell Other Interventions: Discharge Summary Assessment (RN) Last Done: 01/13/22 14:33
[2022-01-13] MEDS ORDERED: LOSARTAN POTASSIUM 25 MG TAB PO SCH (21:00)
[2022-01-13] MEDS ORDERED: HYDROXYCHLOROQUINE SULFATE 200 MG TAB PO SCH (21:00)
[2022-01-14] MEDS ORDERED: INSULIN GLARGINE SOLOSTAR 100 UNITS/ML 3 ML PEN SC SCH (09:00)
== END 2022-01-13 16:38 | disposition home or self-care (01) ==
LOC: 2W 00:12 → ED 00:12 → 2W 05:16